=== PATIENT | male | born 1975 | race Caucasian/White ===

== ENCOUNTER 2016-11-09 22:48 | Emergency (ER) | payer SELFPAY ==
[2016-11-09 23:03] VITALS: BP 145/95
[2016-11-09] MEDS ORDERED: Penicillin V Potassium 500 MG Tab PO ONE (23:14)
[2016-11-09] MEDS ORDERED: Naproxen 500 MG Tab PO ONE (23:14)
--- NOTE | 2016-11-09 23:21 | EDM.PDOC ---
ED HPI ENT - General Chief Complaint: ENT Problem Stated Complaint: TOOTH PAIN Time Seen by Provider: 11/09/16 23:01 Source of Information: Reports: Patient, RN notes reviewed, Significant Other ( Girlfriend) History Limitations: Reports: No limitations - History of Present Illness INITIAL COMMENTS - FREE TEXT/NARRATIVE: The patient states that he developed upper right dental pain last night and he states that he has bad teeth, but he did not suffer any recent injury to his teeth. He has not seen a dentist about this, citing lack of employment. He denies recent oral drainage. No recent fever. - Related Data Allergies/ADRs: Allergies Allergy/AdvReac Type Severity Reaction Status Date / Time No Known Allergies Allergy Verified 11/09/16 23:03 Home Meds: Home Meds Naproxen 1 tab PO Q12H PRN #20 tablet 11/09/16 [Rx] Penicillin V Potassium [IJD: Penicillin V Potassium] 1 tab PO Q6H #40 tab [Rx] Past Medical History - Past Surgical History HEENT Surgical History: Reports: Oral surgery ([place] teeth extraction) Social & Family History - Tobacco Use Smoking Status *Q: Current Every Day Smoker Years of Tobacco use: 10 Packs/Tins Daily: 1 - Alcohol Use Alcohol Use History: Yes Alcohol Use Frequency: Rarely - Recreational Drug Use Recreational Drug Use: No - Living Situation & Occupation Living situation: Reports: single, with family Occupation: unemployed ED ROS ENT - Review of Systems Review Of Systems: See Below Constitutional: Reports: no symptoms HEENT: Reports: No symptoms Respiratory: Reports: No Symptoms Cardiovascular: Reports: No symptoms Endocrine: Reports: no symptoms GI/Abdominal: Reports: No symptoms : Reports: no symptoms Musculoskeletal: Reports: no symptoms Skin: Reports: no symptoms Neurological: Reports: No Symptoms Psychiatric: Reports: No symptoms Hematologic/Lymphatic: Reports: no symptoms Immunologic: Reports: no symptoms ED EXAM, ENT - Physical Exam Exam: See Below Exam Limited By: No limitations General Appearance: alert, WD/WN, no apparent distress Eye Exam: bilateral eye: EOMI, normal inspection Ears: normal external exam, normal canal, hearing grossly normal, normal TMs Nose: normal inspection, normal mucousa, no blood Mouth/Throat: Normal inspection, Normal lips, Normal oropharynx, Other (Teeth #1 , 2, 3, 4, 5 absent. Teeth #6, 7, 8, 9 significantly carious. Tooth #10 deeply carious. Tooth #11 at significantly carious. Teeth #12, 13 deeply carious. Tooth #14 with filling. Teeth #16, 17, 18, 19 absent. Teeth #29, 30 , 31, 32 absent) Course - Vital Signs Last Recorded V/S: Last Vital Signs Temp 36.6 C 11/09/16 23:00 Pulse 58 L 11/09/16 23:00 Resp 16 11/09/16 23:00 BP 145/95 H 11/09/16 23:00 Pulse Ox 96 11/09/16 23:00 - Orders/Labs/Meds Orders: Active Orders 24 hr Category Date Time Status Naproxen [Naprosyn] Med 11/09/16 23:14 Once 500 mg PO ONETIME ONE Penicillin V Potassium [Veetids] Med 11/09/16 23:14 Once 500 mg PO ONETIME ONE Medication Orders Naproxen (Naprosyn) 500 mg PO ONETIME ONE Stop: 11/09/16 23:15 Penicillin V Potassium (Veetids) 500 mg PO ONETIME ONE Stop: 11/09/16 23:15 Meds: Medications Generic Name Dose Route Start Last Admin Trade Name Freq PRN Reason Stop Dose Admin Naproxen 500 mg 11/09/16 23:14 Naprosyn PO 11/09/16 23:15 ONETIME ONE Penicillin V Potassium 500 mg 11/09/16 23:14 Veetids PO 11/09/16 23:15 ONETIME ONE - Re-Assessments/Exams Free Text/Narrative Re-Assessment/Exam: 11/09/16 23:15 The patient has advanced dental decay. He is complaining of pain to some upper right teeth - is unclear which tooth in particular may be causing the problem, as they are all bad. Infection is possible, therefore I will start him on a ten -day course of penicillin, and I will also start him on naproxen. I emphasized the need for him to followup with a dentist. Departure - Departure Time of Disposition: 23:17 Disposition: Home, Self-Care 01 Condition: fair Clinical Impression: Dentalgia, Dental decay Forms: ED Department Discharge Additional Instructions: You were seen in the emergency room for upper right tooth pain. On examination, you have advanced dental decay. An infection is possible. You have been started on the antibiotic penicillin. Take one tablet every 6 hours, as prescribed. Finish the entire prescription unless told otherwise by a dentist. You have been started on the pain medicine naproxen. Take one tablet every 12 hours, with food, as prescribed. It is IMPERATIVE that you followup with a dentist, soon. The medicines you have prescribed will not reverse your underlying dental problems. If any other problems, please do not hesitate to return to the ER. - My Orders Last 24 Hours: My Active Orders 11/09/16 23:14 Naproxen [Naprosyn] 500 mg PO ONETIME ONE Penicillin V Potassium [Veetids] 500 mg PO ONETIME ONE - Assessment/Plan Last 24 Hours: My Active Orders 11/09/16 23:14 Naproxen [Naprosyn] 500 mg PO ONETIME ONE Penicillin V Potassium [Veetids] 500 mg PO ONETIME ONE
== END 2016-11-09 23:27 | disposition home or self-care (01) ==
LOC: JD.ED 22:48
DX: K02.9 Dental caries, unspecified (principal); F17.210 Nicotine dependence, cigarettes, uncomplicated
CPT/HCPCS: 99283; A9270; 99282

== ENCOUNTER 2018-08-03 17:10 | Emergency (ER) | payer SELFPAY ==
[2018-08-03 17:20] VITALS: BP 133/88
--- NOTE | 2018-08-03 17:42 | EDM.PDOC ---
ED HPI GENERAL MEDICAL PROBLEM - General Chief Complaint: Gastrointestinal Problem Stated Complaint: FEVER LAST NIGHT Time Seen by Provider: 08/03/18 17:17 Source of Information: Reports: Patient History Limitations: Reports: No Limitations - History of Present Illness INITIAL COMMENTS - FREE TEXT/NARRATIVE: 42-year-old male presents for evaluation and treatment of fevers and vomiting. Reports symptoms started last night. Reports that he had a fever of 98-99 last night. He is also reporting a productive cough. Reports he vomited 3 times last night and 3 times today. He reports a runny nose and a sore throat. Denies any headaches, body aches, diarrhea or abdominal pain. patient does not get influenza vaccine this season. Denies any ill contacts. Did miss work today due to his illness. Duration: Day(s): (2) - Related Data Allergies Allergy/AdvReac Type Severity Reaction Status Date / Time No Known Allergies Allergy Verified 08/03/18 17:19 Home Meds: Home Meds Ondansetron [Zofran ODT] 4 mg PO Q6H PRN #10 tab.dis 08/03/18 [Rx] Past Medical History - Past Health History Medical/Surgical History: Denies Medical/Surgical History Other HEENT History: dental pain - Past Surgical History HEENT Surgical History: Reports: Oral Surgery Social & Family History - Family History Family Medical History: Noncontributory - Tobacco Use Smoking Status *Q: Current Every Day Smoker Years of Tobacco use: 20 Packs/Tins Daily: 1 - Caffeine Use Caffeine Use: Reports: Coffee - Recreational Drug Use Recreational Drug Use: No - Living Situation & Occupation Living situation: Reports: Single, with Family Occupation: Unemployed ED ROS GENERAL - Review of Systems Review Of Systems: See Below Constitutional: Reports: Fever, Other (denies bodyaches) HEENT: Reports: Throat Pain (reports a scratchy throat). Denies: Ear Pain Respiratory: Reports: Cough, Sputum GI/Abdominal: Reports: Nausea, Vomiting. Denies: Abdominal Pain, Diarrhea Neurological: Denies: Headache ED EXAM, GENERAL - Physical Exam Exam: See Below Exam Limited By: No Limitations General Appearance: Alert, WD/WN, No Apparent Distress Nose: Normal Inspection Throat/Mouth: Normal Inspection, Normal Lips, Normal Voice, No Airway Compromise Respiratory/Chest: No Respiratory Distress, Lungs Clear, Normal Breath Sounds Cardiovascular: Normal Peripheral Pulses, Regular Rate, Rhythm, No Murmur Neurological: Alert, Oriented, Normal Cognition Psychiatric: Normal Affect, Normal Mood Skin Exam: Diaphoretic, Increased Warmth Course - Vital Signs Last Recorded V/S: Last Vital Signs Temp 96.9 F 08/03/18 17:15 Pulse 82 08/03/18 17:15 Resp 18 08/03/18 17:15 BP 133/88 08/03/18 17:15 Pulse Ox 98 08/03/18 17:15 - Orders/Labs/Meds Orders: Active Orders 24 hr Category Date Time Status Chest 2V [CR] Stat Exams 08/03/18 17:38 Taken - Radiology Interpretation Free Text/Narrative:: Chest: 2 views of the chest were obtained. Comparison: No previous study. Heart size and mediastinum are normal. Lungs are clear. Bony structures appear within normal limits. Impression: 1. Nothing acute is seen on 2 view chest x-ray. - Re-Assessments/Exams Free Text/Narrative Re-Assessment/Exam: 08/03/18 18:30 Rapid influenza returned negative. Discussed labs and imaging with the patient. Will give note for work . Recommend sympomatic care. Discharge instructions as documented. Departure - Departure Time of Disposition: 18:31 Disposition: Home, Self-Care 01 Condition: Fair Clinical Impression: Viral upper respiratory illness - Discharge Information *PRESCRIPTION DRUG MONITORING PROGRAM REVIEWED*: No *COPY OF PRESCRIPTION DRUG MONITORING REPORT IN PATIENT KOLE: No Prescriptions: Ondansetron [Zofran ODT] 4 mg PO Q6H PRN #10 tab.dis PRN Reason: Nausea Instructions: Upper Respiratory Infection, Adult, [id number] Referrals: PCP,None [Primary Care Provider] - Deneen Us PA-C [Physician [employer]] - Forms: ED Department Discharge, ED Return to Work/School Form Additional Instructions: Take OTC tylenol and motrin as needed for fevers and discomfort. May take the zofran 1 tab sublingual as needed for nausea. Recommend clear fluids and a bland diet. King diet recommendations include bread, soup broth, applesauce, etc. Follow-up with family medicine if not much better in 7-10 days. At the [facility] recommend Deneen Us or Clau Mckinley, call [phone] to schedule with one of these providers. Please return to the ER should your symptoms change or worsen. - My Orders Last 24 Hours: My Active Orders 08/03/18 17:38 Chest 2V [CR] Stat - Assessment/Plan Last 24 Hours: My Active Orders 08/03/18 17:38 Chest 2V [CR] Stat
--- NOTE | 2018-08-04 06:58 | CR ---
Chest: Two views of the chest were obtained. Comparison: No previous study. Heart size and mediastinum are normal. Lungs are clear. Bony structures appear within normal limits. Impression: 1. Nothing acute is seen on two-view chest x-ray. Diagnostic code #1
== END 2018-08-03 18:45 | disposition home or self-care (01) ==
LOC: JD.ED 17:10
DX: J06.9 Acute upper respiratory infection, unspecified (principal); F17.210 Nicotine dependence, cigarettes, uncomplicated
CPT/HCPCS: 71046; 71046-26; 87804; 99283

== ENCOUNTER 2020-10-06 23:49 | Emergency (ER) | payer SELFPAY ==
[2020-10-07 00:01] VITALS: BP 145/98; PULSE 94
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
[2020-10-07] MEDS ORDERED: FLU VACC QS2020-21(6MOS UP)/PF 60 MCG/0.5 ML SYRINGE IM ONE (00:15)
[2020-10-07] MEDS ORDERED: Acetaminophen/HYDROcodone 325-5 MG Tab PO ONE (00:43)
--- NOTE | 2020-10-07 08:44 | CR ---
Left hand: 3 views of the left hand were obtained. Comparison: No previous study. Slightly angulated fracture is noted within the fifth metacarpal. Fracture is noted within the mid metacarpal of the fifth digit. Soft tissue swelling is present. Joint spaces are preserved. No additional fracture or other abnormality is appreciated. Impression: 1. Mid left fifth metacarpal fracture with apex posterior angulation. 2. Soft tissue swelling. Diagnostic code #3
== END 2020-10-07 00:54 | disposition home or self-care (01) ==
LOC: JD.ED 23:49
DX: S62.327A Displaced fracture of shaft of fifth metacarpal bone, left hand, initial encounter for closed fracture (principal); Z72.0 Tobacco use; W22.8XXA Striking against or struck by other objects, initial encounter
CPT/HCPCS: 29125; 73130; 99283; A9270

== ENCOUNTER 2025-01-24 18:56 | Emergency (ER) | payer MEDICAID ==
[2025-01-24 19:07] VITALS: PULSE 85
[2025-01-24] MEDS ORDERED: Sodium Chloride 0.9% 10 ML Syringe FLUSH PRN (19:17)
[2025-01-24 19:42] LABS: BASOPHILS PERCENT AUTO 0.3 % (0.0-1.0); EOSINOPHILS ABSOLUTE AUTO 0.3 K/mm3 (0.0-0.4); EOSINOPHILS PERCENT AUTO 3.4 % (0.0-6.0); HEMATOCRIT 44.1 % (42.0-52.0); HEMOGLOBIN 14.8 gm/dl (14.0-18.0); IMMATURE GRAN ABSOLUTE AUTO 0.02 K/mm3 (0.00-0.05); IMMATURE GRAN PERCENT AUTO 0.2 % (0.0-0.4); LYMPHOCYTES ABSOLUTE AUTO 2.7 K/mm3 (1.0-4.8); MEAN CORPUSCULAR HEMOGLOBIN 31.6 pg (28.0-32.0); MEAN CORPUSCULAR HGB CONC 33.6 g/dl (32.0-36.0); MEAN CORPUSCULAR VOLUME 94.2 fl (83.0-99.0); MEAN PLATELET VOLUME 11.4 fl (9.4-12.4); MONOCYTES ABSOLUTE AUTO 0.5 K/mm3 (0.0-0.8); MONOCYTES PERCENT AUTO 4.7 % (0.0-8.0); NEUTROPHILS ABSOLUTE AUTO 6.2 K/mm3 (1.8-7.7); NEUTROPHILS PERCENT AUTO 63.4 % (41.0-71.0); PLATELET COUNT,PLT 182 K/mm3 (150-400); RED BLOOD CELL COUNT 4.68 M/mm3 (4.52-5.90); WHITE BLOOD CELL COUNT,WBC 9.73 K/mm3 (3.9-11.3)
[2025-01-24] MEDS: Diphtheria,Pertussis(Acell),Tetanus Vaccine 0.5 ML Syringe IM ONE (19:49)
[2025-01-24] MEDS: Amoxicillin/Clavulanate K 875-125 MG Tab PO ONE (19:50)
[2025-01-24] MEDS: cefTRIAXone 2 GM in Sodium Chloride 0.9% 100 ML IV ONE (19:50)
[2025-01-24 19:59] LABS: A/G RATIO 0.9 (1-2); ALBUMIN 3.4 g/dl (3.4-5.0); BILIRUBIN TOTAL 0.5 mg/dL (0.2-1.0); BUN/CREATININE RATIO 16.7 (14-18); C-REACTIVE PROTEIN 1.73 mg/dL (<0.30); CALCIUM 8.6 mg/dL (8.5-10.1); CREATININE 1.2 mg/dL (0.7-1.3); EST CRCL DRUG DOSING (CG) 88.48 mL/min; PROTEIN TOTAL,TP 7.1 g/dl (6.4-8.2)
[2025-01-24 22:30] VITALS: BP 124/78
== END 2025-01-24 20:30 | disposition home or self-care (01) ==
LOC: JD.ED 18:56
DX: L08.9 Local infection of the skin and subcutaneous tissue, unspecified (principal); S61.451A Open bite of right hand, initial encounter; Z79.899 Other long term (current) drug therapy; W54.0XXA Bitten by dog, initial encounter
CPT/HCPCS: 36415; 80053; 85025; 86140; 90471; 90715; 96365; 99283; A9270; J0696